=== PATIENT | female | born 1965 | race Caucasian/White ===

== ENCOUNTER 2023-10-20 08:17 | Emergency (ER) | payer SELFPAY ==
[2023-10-20] VITALS (13 sets, daily range): BP systolic 93–152; BP diastolic 52–68; PULSE 52–113; TEMP 36.6; O2SAT 94–100; BMI 25.6
--- NOTE | 2023-10-20 08:29 | XR_ITS ---
The [address] [address] Patient Name: SOFIA MONTALVO MRN: [id number] date: 1965 Sex: F Assigned Patient Location: ER Current Patient Location: ER Accession/Order Number: [id number] Exam Date: 10/20/2023 09:04 Report Date: 10/20/2023 09:19 At the request of: LEORA HOWARD Procedure: XR chest 1V EXAMINATION: XR chest 1V HISTORY: cp COMPARISON: No relevant comparison available. FINDINGS: LUNGS: No significant pulmonary parenchymal abnormalities. VASCULATURE: No increased pulmonary vasculature. PLEURA: No pneumothorax, effusion, or pleural thickening. CARDIAC: No cardiomegaly or cardiac silhouette abnormality. MEDIASTINUM: No visible mass or adenopathy. BONES: No fracture or visible bone lesion. OTHER: Negative. XR/XR chest 1V IMPRESSION: 1. No acute cardiopulmonary process. Electronically authenticated by: ALMA RIDLEY Date: 10/20/2023 09:19
--- NOTE | 2023-10-20 08:29 | ECG_ITS ---
The [facility] Test Date: 2023-10-20 Pat Name: Viktoria Phelan Department: Room: - Gender: Female [employer] Developer: : 1965 Requested By: [id number] Order Number: [id number] Reading MD: DANIEL RIVERA Measurements Intervals [place] Rate: 63 P: 73 WV: 222 QRS: 91 QRSD: 84 T: 68 QT: 396 QTc: 404 Interpretive Statements 1100 Sinus rhythm 2231 First degree AV block 7102 Moderate right axis deviation 9150 abnormal ECG No previous ECG available for comparison Electronically Signed On 10-20-2023 22:49:51 EDT by DANIEL RIVERA
--- NOTE | 2023-10-20 08:29 | CT_ITS ---
The [address] [address] Patient Name: SOFIA MONTALVO MRN: [id number] date: 1965 Sex: F Assigned Patient Location: ER Current Patient Location: ER Accession/Order Number: [id number] Exam Date: 10/20/2023 09:04 Report Date: 10/20/2023 09:36 At the request of: LEORA HOWARD Procedure: CT head/brain wo con EXAMINATION: CT head/brain wo con HISTORY: headache COMPARISON: No relevant comparison available. TECHNIQUE: Axial CT images were obtained without IV contrast. Dose reduction techniques were achieved by using automated exposure control and/or adjustment of mA and/or kV according to patient size and/or use of iterative reconstruction technique. FINDINGS: BRAIN: No edema, hemorrhage, mass, acute infarction, or inappropriate atrophy. CSF SPACES: No hydrocephalus, subarachnoid hemorrhage, or mass. Appropriate for age. SKULL: No fracture, mass, or other significant visible lesion. SINUSES: No significant mucosal thickening or fluid on the limited views. ORBITS: No appreciable abnormality on the limited views. OTHER: Negative CT/CT head/brain wo con IMPRESSION: 1. No abnormal or suspicious findings to account for patient's symptoms. Electronically authenticated by: ALMA RIDLEY Date: 10/20/2023 09:36
[2023-10-20 08:41] LABS: Basophils Absolute Auto 0.1 10^3/uL (0.0-0.1); Eosinophils Absolute Auto 0.1 10^3/uL (0.0-0.7); Eosinophils Percent Auto 2.1 % (0.9-7.0); Hematocrit 44.5 % (36.0-48.0); Hemoglobin 15.2 g/dL (12.0-16.0); Immature Granulocytes Abs Auto 0.01 10^3/uL (0.00-0.03); Immature Granulocytes Pct Auto 0.2 % (0.0-0.5); Lymphocytes Absolute Auto 1.6 10^3/uL (1.2-3.8); Lymphocytes Percent Auto 30.5 % (20.5-60.0); Mean Corpuscular HGB Conc 34.2 g/dL (29.9-35.2); Mean Corpuscular Hemoglobin 33.1 pg (26.7-34.0); Mean Corpuscular Volume 96.9 fL (81.0-99.0); Mean Platelet Volume 9.6 fL (9.5-13.5); Monocytes Absolute Auto 0.4 10^3/uL (0.3-0.8); Monocytes Percent Auto 6.7 % (1.7-12.0); Neutrophils Absolute Auto 3.1 10^3/uL (1.4-6.5); Neutrophils Percent Auto 59.5 % (43.0-75.0); Platelet Count 200 10^3/uL (150-450); Red Blood Count 4.59 10^6/uL (4.20-5.40); Red Cell Distribution Width 13.1 % (11.0-15.0); White Blood Count 5.3 10^3/uL (4.0-11.0)
[2023-10-20] MEDS: NITROGLYCERIN 0.4 MG BOTTLE SL (08:51)
[2023-10-20 08:59] LABS: Alanine Aminotransferase 26 U/L (14-59); Albumin Globulin Ratio 1.3; Albumin Level 3.8 g/dL (3.4-5.0); Alkaline Phosphatase 89 U/L (46-116); Anion Gap 13.2; Aspartate Amino Transferase 23 U/L (15-37); BUN Creatinine Ratio 10.3; Bilirubin Total 0.5 mg/dL (0.2-1.0); Calcium 9.3 mg/dL (8.5-10.1); Carbon Dioxide 28.3 mmol/L (21.0-32.0); Chloride 106 mmol/L (98-107); Estimated GFR (African America >60 (>=60); Estimated GFR (Non-African Ame >60 (>=60); Glucose 115 mg/dL (74-106); Potassium 3.5 mmol/L (3.5-5.1); Sodium 144 mmol/L (136-145); Total Protein 6.8 g/dL (6.4-8.2)
[2023-10-20 09:02] LABS: Troponin I High Sensitivity 5.3 pg/mL (4.0-51.3)
--- NOTE | 2023-10-20 09:07 | ED_ITS ---
HPI HPI - General Adult General Chief complaint: Chest Pain Stated complaint: CHEST PAIN Time Seen by Provider: 10/20/23 08:23 Source: patient Mode of arrival: walk-in Limitations: no limitations History of Present Illness HPI narrative: Patient presents to ED complaining of chest pain. She has a history of 1 stent placed a couple of years ago. She said this feels similar but not as bad. She takes aspirin and Plavix daily. She is supposed to be on a statin but just ran out of her statin medication. She also reports a headache. She complains of congestion and just not feeling well lately. She denies shortness of breath or diaphoresis. No nausea vomiting no abdominal pain. She does report that the pain seems to be worse with exertion. She said it has been going on and off for weeks but it was worse last night. She went to bed thinking maybe it would be better in the morning and it was not so she came in for further evaluation. Related Data Allergies Allergy/AdvReac Type Severity Reaction Status Date / Time codeine AdvReac Mild Nausea Verified 10/20/23 08:22 Opioid HPI Opioid Management Most Recent Opioid Data: Ur Phencyclidine Scrn Negative (NEGATIVE) 10/20/23 09:14 Review of Systems ROS Status of ROS 10 or more systems reviewed and unremark able except as noted in history and below Exam Narrative Exam Narrative: Time Seen: [] Vital Signs: [Per nurse's notes.] General: [Alert] Skin: [Warm, dry, no rash.] Head: [Normocephalic, atraumatic.] Neck: [Supple, trachea midline.] Eye: [Pupils are equal, round and reactive to light, extraocular movements are intact, normal conjunctiva.] Ears, nose, mouth and throat: oral mucosa moist. Cardiovascular: [Regular rate and rhythm, no murmur.] Respiratory: [Lungs are clear to auscultation, respirations are non-labored, breath sounds are equal.] Chest wall: [No tenderness, no deformity.] Gastrointestinal: [Soft, nontender, non distended, normal bowel sounds.] MSK: 5 out of 5 muscle strength x 4 extremities no calf pain or edema Lymphatics: [No lymphadenopathy.] Psychiatric: [Cooperative, Patient seems slightly anxious, mildly tearful Neurological: [Alert and oriented to person, place, time, and situation, no focal neurological deficit observed.] Constitutional Vital Signs, click to edit/add: Last Vital Signs Temp 97.8 F 10/20/23 08:22 Pulse 54 L 10/20/23 10:00 Resp 16 10/20/23 10:00 BP 93/52 10/20/23 10:00 Pulse Ox 98 10/20/23 09:00 O2 Del Method Room Air 10/20/23 08:22 Course Vital Signs Vital signs: Vital Signs Temperature 97.8 F 10/20/23 08:22 Pulse Rate 71 10/20/23 08:22 Respiratory Rate 18 10/20/23 08:22 Blood Pressure 152/68 H 10/20/23 08:22 Pulse Oximetry 100 10/20/23 08:22 Oxygen Delivery Method Room Air 10/20/23 08:22 Temperature 97.8 F 10/20/23 08:22 Pulse Rate 54 L 10/20/23 10:00 Respiratory Rate 16 10/20/23 10:00 Blood Pressure 93/52 10/20/23 10:00 Pulse Oximetry 98 10/20/23 09:00 Oxygen Delivery Method Room Air 10/20/23 08:22 Medical Decision Making MDM Narrative Medical decision making narrative: Patient's labs and imaging are nonacute. Troponin x 2 are negative. COVID- negative. Unsure exactly what her symptoms are from at this time, possibly viral or atypical chest pain. Follow-up with family doctor return to ED if worsening symptoms. Differential Diagnosis Differential Diagnosis: Chest pain, ACS, viral syndrome, COVID, atypical chest pain Medical Records Medical records reviewed: Yes I reviewed the patient's medical records Lab Data Lab results reviewed: Yes I reviewed the patient's lab results Labs: Lab Results 10/20/23 10/20/23 10/20/23 Range/Units 08:34 08:52 09:14 WBC 5.3 (4.0-11.0) 10^3/uL RBC 4.59 (4.20-5.40) 10^6/uL Hgb 15.2 (12.0-16.0) g/dL Hct 44.5 (36.0-48.0) % MCV 96.9 (81.0-99.0) fL MCH 33.1 (26.7-34.0) pg MCHC 34.2 (29.9-35.2) g/dL RDW 13.1 (11.0-15.0) % Plt Count 200 (150-450) 10^3/uL MPV 9.6 (9.5-13.5) fL Neut % (Auto) 59.5 (43.0-75.0) % Lymph % (Auto) 30.5 (20.5-60.0) % Elliott % (Auto) 6.7 (1.7-12.0) % Eos % (Auto) 2.1 (0.9-7.0) % Baso % (Auto) 1.0 (0.2-2.0) % Neut # (Auto) 3.1 (1.4-6.5) 10^3/uL Lymph # (Auto) 1.6 (1.2-3.8) 10^3/uL Elliott # (Auto) 0.4 (0.3-0.8) 10^3/uL Eos # (Auto) 0.1 (0.0-0.7) 10^3/uL Baso # (Auto) 0.1 (0.0-0.1) 10^3/uL Abs Immat Gran (auto) 0.01 (0.00-0.03) 10^3/uL Imm/Tot Granulo (auto) 0.2 (0.0-0.5) % Sodium 144 (136-145) mmol/L Potassium 3.5 (3.5-5.1) mmol/L Chloride 106 (98-107) mmol/L Carbon Dioxide 28.3 (21.0-32.0) mmol/L Anion Gap 13.2 BUN 8.0 (7.0-18.0) mg/dL Creatinine 0.78 (0.55-1.02) mg/dL Est GFR ( Amer) >60 (>=60) Est GFR (Non-Af Amer) >60 (>=60) BUN/Creatinine Ratio 10.3 Glucose 115 H (74-106) mg/dL Calcium 9.3 (8.5-10.1) mg/dL Total Bilirubin 0.5 (0.2-1.0) mg/dL AST 23 (15-37) U/L ALT 26 (14-59) U/L Alkaline Phosphatase 89 (46-116) U/L Troponin I High Sens 5.3 (4.0-51.3) pg/mL Total Protein 6.8 (6.4-8.2) g/dL Albumin 3.8 (3.4-5.0) g/dL Globulin 3.0 g/dL Albumin/Globulin Ratio 1.3 Urine Color Lt. yellow (YELLOW) Urine Clarity Clear (CLEAR) Urine pH 6.0 (5.0-9.0) Ur Specific [place] 1.010 (1.005-1.025) Urine Protein Negative (NEG/TRACE) mg/dL Urine Glucose (UA) Negative (NEGATIVE) mg/dL Urine Ketones Negative (NEGATIVE) mg/dL Urine Occult Blood Trace-i (NEGATIVE) Urine Nitrite Negative (NEGATIVE) Urine Bilirubin Negative (NEGATIVE) Urine Urobilinogen 0.2 (0.2-1.0) EU/dL Ur Leukocyte Esterase Negative (NEGATIVE) Urine RBC 0-2 (0-2) #/HPF Urine WBC None seen (NONE SEEN) #/HPF Ur Squamous Epith Cells Few A (NONE/RARE) #/LPF Urine Crystals None seen (None Seen) #/HPF Urine Bacteria None seen (NONE SEEN) #/HPF Urine Casts None seen (NONE SEEN) #/LPF Urine Mucus None seen (NONE SEEN) Ur Culture Indicated? No Urine Opiates Screen Negative (NEGATIVE) Ur Buprenorphine Scrn Negative (NEGATIVE) Ur Oxycodone Screen Negative (NEGATIVE) Urine Methadone Screen Negative (NEGATIVE) Ur Barbiturates Screen Negative (NEGATIVE) U Tricyclic Antidepress Negative (NEGATIVE) Ur Phencyclidine Scrn Negative (NEGATIVE) Ur Amphetamines Screen Negative (NEGATIVE) U Methamphetamines Scrn Negative (NEGATIVE) U Benzodiazepines Scrn Negative (NEGATIVE) Urine Cocaine Screen Negative (NEGATIVE) U Cannabinoids Screen Positive A (NEGATIVE) SARS-CoV-2 Ag (CV2AG) Negative (NEGATIVE) 10/20/23 Range/Units 10:08 WBC (4.0-11.0) 10^3/uL RBC (4.20-5.40) 10^6/uL Hgb (12.0-16.0) g/dL Hct (36.0-48.0) % MCV (81.0-99.0) fL MCH (26.7-34.0) pg MCHC (29.9-35.2) g/dL RDW (11.0-15.0) % Plt Count (150-450) 10^3/uL MPV (9.5-13.5) fL Neut % (Auto) (43.0-75.0) % Lymph % (Auto) (20.5-60.0) % Elliott % (Auto) (1.7-12.0) % Eos % (Auto) (0.9-7.0) % Baso % (Auto) (0.2-2.0) % Neut # (Auto) (1.4-6.5) 10^3/uL Lymph # (Auto) (1.2-3.8) 10^3/uL Elliott # (Auto) (0.3-0.8) 10^3/uL Eos # (Auto) (0.0-0.7) 10^3/uL Baso # (Auto) (0.0-0.1) 10^3/uL Abs Immat Gran (auto) (0.00-0.03) 10^3/uL Imm/Tot Granulo (auto) (0.0-0.5) % Sodium (136-145) mmol/L Potassium (3.5-5.1) mmol/L Chloride (98-107) mmol/L Carbon Dioxide (21.0-32.0) mmol/L Anion Gap BUN (7.0-18.0) mg/dL Creatinine (0.55-1.02) mg/dL Est GFR ( Amer) (>=60) Est GFR (Non-Af Amer) (>=60) BUN/Creatinine Ratio Glucose (74-106) mg/dL Calcium (8.5-10.1) mg/dL Total Bilirubin (0.2-1.0) mg/dL AST (15-37) U/L ALT (14-59) U/L Alkaline Phosphatase (46-116) U/L Troponin I High Sens 5.0 (4.0-51.3) pg/mL Total Protein (6.4-8.2) g/dL Albumin (3.4-5.0) g/dL Globulin g/dL Albumin/Globulin Ratio Urine Color (YELLOW) Urine Clarity (CLEAR) Urine pH (5.0-9.0) Ur Specific [place] (1.005-1.025) Urine Protein (NEG/TRACE) mg/dL Urine Glucose (UA) (NEGATIVE) mg/dL Urine Ketones (NEGATIVE) mg/dL Urine Occult Blood (NEGATIVE) Urine Nitrite (NEGATIVE) Urine Bilirubin (NEGATIVE) Urine Urobilinogen (0.2-1.0) EU/dL Ur Leukocyte Esterase (NEGATIVE) Urine RBC (0-2) #/HPF Urine WBC (NONE SEEN) #/HPF Ur Squamous Epith Cells (NONE/RARE) #/LPF Urine Crystals (None Seen) #/HPF Urine Bacteria (NONE SEEN) #/HPF Urine Casts (NONE SEEN) #/LPF Urine Mucus (NONE SEEN) Ur Culture Indicated? Urine Opiates Screen (NEGATIVE) Ur Buprenorphine Scrn (NEGATIVE) Ur Oxycodone Screen (NEGATIVE) Urine Methadone Screen (NEGATIVE) Ur Barbiturates Screen (NEGATIVE) U Tricyclic Antidepress (NEGATIVE) Ur Phencyclidine Scrn (NEGATIVE) Ur Amphetamines Screen (NEGATIVE) U Methamphetamines Scrn (NEGATIVE) U Benzodiazepines Scrn (NEGATIVE) Urine Cocaine Screen (NEGATIVE) U Cannabinoids Screen (NEGATIVE) SARS-CoV-2 Ag (CV2AG) (NEGATIVE) Imaging Data Chest x-ray: Radiologist's impression: ITS Impressions Chest X-Ray 10/20/23 08:29 IMPRESSION: 1. No acute cardiopulmonary process. Electronically authenticated by: ALMA RIDLEY Date: 10/20/2023 09:[address] 10/20/23 08:29 IMPRESSION: 1. No abnormal or suspicious findings to account for patient's symptoms. Electronically authenticated by: ALMA RIDLEY Date: 10/20/2023 09:36 ECG Data Attestation: I personally reviewed and interpreted this ECG as follows: Interpretation: EKG INTERPRETATION Time: []826 Rate: []63 Rhythm: _ []Sinus rhythm first-degree AV block ST segments: _ []No acute ST elevation or depression T waves: _ [] Ectopy: _ [] P wave/AL interval: _ [] QRS interval: _ [] QT interval: _ [] Comparison: _ [] Comparison EKG date: [] Performed by: [self] Discharge Plan Discharge Stand Alone Forms: Portal Instructions Chief Complaint: Chest Pain Clinical Impression: Chest pain, Acute viral syndrome Patient Disposition: Home, Self-Care Time of Disposition Decision: 10:49 Condition: Good Mode of Transportation: Private Vehicle Print Language: Estonian Instructions: Chest Pain (ED), Viral Syndrome (ED) Referrals: Physician,Non-Staff, MD [Primary Care Provider] - 1 week
[2023-10-20 09:20] LABS: Internal Control Within Normal Limits; SARS-CoV-2 Ag NEGATIVE (NEGATIVE)
[2023-10-20 09:25] LABS: Bilirubin Urine NEGATIVE (NEGATIVE); Blood Urine TRACE-I (NEGATIVE); Clarity Urine CLEAR (CLEAR); Color Urine LT. YELLOW (YELLOW); Glucose Urine UA NEGATIVE (NEGATIVE); Ketones Urine NEGATIVE (NEGATIVE); Leukocyte Esterase Urine NEGATIVE (NEGATIVE); Nitrite Urine NEGATIVE (NEGATIVE); Protein Urine NEGATIVE (NEG/TRACE); Urobilinogen Urine 0.2 EU/dL (0.2-1.0)
[2023-10-20 09:26] LABS: Urine Microscopic Indicated YES
[2023-10-20 09:43] LABS: Bacteria Urine NONE SEEN #/HPF (NONE SEEN); Cast Seen? NONE SEEN #/LPF (NONE SEEN); Crystals Seen? None Seen #/HPF (None Seen); Mucus Urine NONE SEEN (NONE SEEN); RBC Urine 0-2 #/HPF (0-2); Squamous Epithelial Cell Urine FEW #/LPF (NONE/RARE); Urine Culture Indicated NO; WBC Urine NONE SEEN #/HPF (NONE SEEN)
[2023-10-20 09:44] LABS: Amphetamine Screen Urine NEGATIVE (NEGATIVE); Barbiturates Screen Urine NEGATIVE (NEGATIVE); Benzodiazepines Screen Urine NEGATIVE (NEGATIVE); Buprenorphine Screen Urine NEGATIVE (NEGATIVE); Cannabinoid Screen Urine POSITIVE (NEGATIVE); Cocaine Screen Urine NEGATIVE (NEGATIVE); Methadone Screen Urine NEGATIVE (NEGATIVE); Methamphetamines Screen Urine NEGATIVE (NEGATIVE); Opiate Screen Urine NEGATIVE (NEGATIVE); Oxycodone Screen Urine NEGATIVE (NEGATIVE); Phencyclidine Screen Urine NEGATIVE (NEGATIVE); Tricyclic Antidepressant Urine NEGATIVE (NEGATIVE)
== END 2023-10-20 11:11 | disposition home or self-care (01) ==
PROVIDERS: Emergency Provider Emergency Medicine
DX: R07.9 Chest pain, unspecified (principal); B34.9 Viral infection, unspecified; Z95.5 Presence of coronary angioplasty implant and graft; Z79.82 Long term (current) use of aspirin; Z79.02 Long term (current) use of antithrombotics/antiplatelets
CPT/HCPCS: 36415; 70450; 71045; 80053; 80307; 81001; 84484; 85025; 87811; 93005; 99285

== ENCOUNTER 2024-11-26 15:11 | Emergency (ER) | payer BC, SELFPAY ==
--- OUTSIDE RECORDS SUMMARY | 2024-11-09 14:33 | XMS_ITS ---
Author Name Auto Generated Organization OHIP Care Team Providers Care Applications Support Lead Name Role Phone JULIAN HOWARD Attending Unavailable FURLONG, BRIAN G Referring Unavailable FURLONG, BRIAN G Attending Unavailable FURLONG, BRIAN G Referring Unavailable FURLONG, BRIAN G Primary Care Unavailable FURLONG, BRIAN G Attending Unavailable FURLONG, BRIAN G Referring Unavailable FURLONG, BRIAN G Primary Care Unavailable FURLONG, BRIAN G Attending Unavailable FURLONG, BRIAN G Referring Unavailable FURLONG, BRIAN G Primary Care Unavailable FURLONG, BRIAN G Attending Unavailable FURLONG, BRIAN G Referring Unavailable FURLONG, BRIAN G Primary Care Unavailable CARMELO MCGOVERN Referring Unavailable FURLONG, BRIAN Schultz Primary Care Unavailable CARMELO MCGOVERN Referring Unavailable FURLONG, BRIAN Marion Primary Care Unavailable HOUSE, AVTAR P Referring Unavailable HOUSE, AVTAR P Primary Care Unavailable FURLONG, BRIAN G Attending Unavailable FURLONG, BRIAN G Referring Unavailable FURLONG, BRIAN G Primary Care Unavailable FURLONG, BRIAN G Attending Unavailable FURLONG, BRIAN G Referring Unavailable FURLONG, BRIAN G Primary Care Unavailable FURLONG, BRIAN G Attending Unavailable FURLONG, BRIAN G Referring Unavailable FURLONG, BRIAN G Primary Care Unavailable FURLONG, BRIAN G Attending Unavailable FURLONG, BRIAN G Referring Unavailable FURLONG, BRIAN G Primary Care Unavailable Everardo Lafleur Attending Unavailable Everardo Lafleur Primary Care Unavailable Everardo Lafleur Admitting Unavailable PROBLEMS DATE TYPE CONDITION / CODE ATTENDING STATUS [facility] 11/09/2024 Unknown Essential (prima ry) hypertension / I10(ICD-10) Everardo Lafleur [facility] 10/06/2024 Unknown Encounter for ge neral adult medical examination without abnormal findings / Z00.00(ICD-10) BRAXTON BRIAN [facility] 10/06/2024 Unknown Radiculopathy, l umbar region / M54.16(ICD-10) BRAXTON BRIAN [facility] 10/06/2024 Unknown Encounter for immunization / Z23(ICD-10) MERVATLUIZ BRIAN [facility] 10/06/2024 Unknown Encounter for ri reening for malignant neoplasm of colon / Z12.11(ICD-10) BRAXTON BRIAN [facility] 10/06/2024 Unknown Annual Exam / FREETEXT(AOF) BRAXTON BRIAN Schultz [facility] 04/25/2016 Unknown Spondylosis with out myelopathy or radiculopathy, lumbosacral region / M47.817(ICD-10) BRAXTON BRIAN [facility] 09/01/2024 Unknown Pain in right kn ee / M25.561(ICD-10) BRAXTON BRIAN [facility] 09/01/2024 Unknown Other chronic pa in / G89.29(ICD-10) BRIAN LIMON [facility] 09/01/2024 Unknown Back Pain / FREETEXT(AOF) MERVATLUIZ [facility] 09/01/2024 Unknown Knee Pain / FREETEXT(AOF) [facility] 08/09/2024 Unknown Joint Swelling / FREETEXT(AOF) [facility]ATLUIZ [facility] 05/10/2024 Unknown Other abnormal a nd inconclusive findings on diagnostic imaging of breast / R92.8(ICD-10) WELCH [facility] 04/20/2024 Unknown Pain, unspecifie d / R52(ICD-10) [facility] 04/15/2024 Unknown Nicotine depende nce, cigarettes, uncomplicated / F17.210(ICD-10) [facility] 04/15/2024 Unknown Encounter for sc reening mammogram for malignant neoplasm of breast / Z12.31(ICD-10) [facility] 07/14/2023 Unknown 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(ICD-10) [facility] 05/07/2023 Unknown Cervicalgia / M54.2(ICD-10) [facility] 05/07/2023 Unknown Encephalitis and encephalomyelitis, unspecified / G04.90(ICD-10) [facility] 05/07/2023 Unknown Myelitis, unspec ified / G04.91(ICD-10) WELCH [facility] 02/10/2024 Unknown Pain in right up per arm / M79.621(ICD-10) [facility] 02/10/2024 Unknown Pain in left kne e / M25.562(ICD-10) [facility] 02/10/2024 Unknown Arm Pain / FREETEXT(AOF) MARC LIMON [facility] PROCEDURES No Procedure Records Found RESULTS COMPLETE BLOOD COUNT AUTO DIFF Collected: 11/09/2024 2:41 PM Status: F Source: [facility] TYPE CODE TESTS RESULT OUT OF RANGE REFERENCE UNITS LAB WBC White Blood Count 6.6 Normal 3.8-11.6 [CFU]/mL LAB UNWBC Uncorrected WBC 6.6 Normal 3.8-11.6 10*3/uL LAB RBC Red Blood Count 4.25 Normal 3.60-5.00 10*6/u L LAB HGB Hemoglobin 14.1 Normal 11.8-15.4 g/dL LAB HCT Hematocrit 40.5 Normal 34.0-46.4 % LAB MCV Mean Corpuscular Volume 95.3 Normal 80-100 fL LAB MCH Mean Corpuscular Hemoglobin 33.2 Normal 24.7-34.3 pg LAB MCHC Mean Corpuscular HGB Conc 34.8 Normal 32.0-35.0 g/dL LAB RDW Red Cell Distribution Width 13.8 Normal 11.9-15.3 % LAB PLT Platelet Count 219 Normal 150-450 10*3/uL LAB MPV Mean Platelet Volume 8.8 Normal 6.3-10.7 fL LAB NE% Neutrophils % (Auto) 74.5 . % LAB LY% Lymphocytes % (Auto) 19.6 . % LAB MO% Monocytes % (Auto) 4.9 . % LAB EO% Eosinophils % (Auto) 0.1 . % LAB BA% Basophils % (Auto) 0.9 . % LAB NRBC% NRBC% 0.0 Normal 0-0.5 /100{WBC} LAB NE# Neutrophils # (Auto) 4.9 Normal 1.8-7.7 10*3/uL LAB LY# Lymphocytes # (Auto) 1.3 Normal 1.00-4.8 10*3/uL LAB MO# Monocytes # (Auto) 0.3 Normal 0.0-0.8 10*3/uL LAB EO# Eosinophils # (Auto) 0.0 Normal 0.0-0.45 10*3/uL LAB BA# Basophils # (Auto) 0.1 Normal 0.0-0.2 10*3/uL Performed By: #### TSH3 wRFL X, [id number], [id number], LDLD, URIC, ESR, FE and TIBC, LIPID, MG, CMP, CBC, TYRA #### [facility] [address] [place] [address] [place] #### APOLONIA CHOICE #### [facility] , ERYTHROCYTE SEDIMENTATION RATE Collected: 11/09/2024 2:41 PM Status: F Source: [facility] TYPE CODE TESTS RESULT OUT OF RANGE REFERENCE UNITS LAB ESR Erythrocyte Sedimentation Rate 19 Normal 0-29 Result Comment: PERFORMED BY : [place] [address] PATHOLOGIST FURNITURE REPAIR TECHNICIAN BARRY ABBOTT M.D. Performed By: #### TSH3 wRFL X, [id number], [id number], LDLD, URIC, ESR, FE and TIBC, LIPID, MG, CMP, CBC, TYRA #### [place] [address] [place] #### APOLONIA CHOICE #### [facility] , COMPREHENSIVE METABOLIC PANEL Collected: 11/09/2024 2 :41 PM Status: F Source: [facility] [place] TYPE CODE TESTS RESULT OUT OF RANGE REFERENCE UNITS LAB GLU Glucose 121 High 70-100 mg/dL Result Comment: Random Gluco se Reference Range is dependent on time and content of last meal. Glucose of more than 200 mg/dL in a nonstressed, ambulatory subject supports the diagnosis of Diabetes Mellitus. ADA recommended reference range LAB BUN Blood Urea Nitrogen 11 Normal 7-25 mg/d L LAB CREATT Creatinine 0.87 Normal 0.60-1.20 mg/dL LAB GFReNR Estimated GFR >60.0 LAB NA Sodium 140 Normal 136-145 mmol/L LAB K Potassium 3.6 Normal 3.5-5.1 mmol/L LAB CL Chloride 106 Normal 98-107 mmol/L LAB CO2 Carbon Dioxide 26.3 Normal 21.0-31.0 mmol/L LAB GAP Anion Gap 11.3 Normal 6.0-15.0 LAB CA Calcium 9.3 Normal 8.6-10.3 mg/dL LAB TP Total Protein 7.1 Normal 6.4-8.9 g/dL LAB ALB Albumin Level 4.4 Normal 3.5-5.7 g/dL LAB GLOB Globulin 2.7 g/dL LAB AGRATIO Albumin/Globulin Ratio 1.6 LAB BILIT Bilirubin,Total 0.5 Normal 0.3-1.0 mg/dL LAB AST Aspartate Amino Transferase 15 Normal 13-39 U/L LAB ALT Alanine Aminotransferase 11 Normal 7-52 U/L LAB ALP Alkaline Phosphatase 72 Normal 34-104 U/L Performed By: #### TSH3 wRFL X, [id number], [id number], LDLD, URIC, ESR, FE and TIBC, LIPID, MG, CMP, CBC, TYRA #### [place] [address] [place] #### APOLONIA CHOICE #### [facility] , MAGNESIUM Collected: 2:41 PM Status: F Source: [facility] TYPE CODE TESTS RESULT OUT OF RANGE REFERENCE UNITS LAB MG Magnesium 1.9 Normal 1.9-2.7 mg/dL Performed By: #### TSH3 wRFL X, [id number], [id number], LDLD, URIC, ESR, FE and TIBC, LIPID, MG, CMP, CBC, TYRA #### [place] [address] [place] #### APOLONIA CHOICE #### [facility] , URIC ACID Collected: 2:41 PM Status: F Source: [facility] TYPE CODE TESTS RESULT OUT OF RANGE REFERENCE UNITS LAB URIC Uric Acid 4.4 Normal 2.3-6.6 mg/dL Performed By: #### TSH3 wRFL X, [id number], [id number], LDLD, URIC, ESR, FE and TIBC, LIPID, MG, CMP, CBC, TYRA #### [place] [address] [place] #### APOLONIA CHOICE #### [facility] , IRON AND TIBC PROFILE Collected: 11/09/2024 2:41 PM Status: F Source: [facility] TYPE CODE TESTS RESULT OUT OF RANGE REFERENCE UNITS LAB FE Iron 72 Normal 50-212 ug/dL LAB TIBCT Total Iron Binding Capacity 237 Low 255-450 ug/dL LAB FESAT% % Iron Saturation 30.4 Normal 20-50 % LAB TRANS Transferrin 169 Low 203-362 mg/dL Performed By: #### TSH3 wRFL X, [id number], [id number], LDLD, URIC, ESR, FE and TIBC, LIPID, MG, CMP, CBC, TYRA #### [facility] [address] [place] [address] [place] #### APOLONIA CHOICE #### [facility] , FERRITIN Collected: 2:41 PM Status: F Source: [facility] TYPE CODE TESTS RESULT OUT OF RANGE REFERENCE UNITS LAB TYRA Ferritin 47.0 Normal 11.0-306.8 ng/mL Performed By: #### TSH3 wRFL X, [id number], [id number], LDLD, URIC, ESR, FE and TIBC, LIPID, MG, CMP, CBC, TYRA #### [facility] [address] [place] [address] [place] #### APOLONIA CHOICE #### [facility] , LIPID PANEL Collected: 11/09/2024 2:41 PM Status: F Source: [facility] TYPE CODE TESTS RESULT OUT OF RANGE REFERENCE UNITS LAB CHOL Cholesterol 214 High 140-200 mg/dL Result Comment: Chol less th an 200 mg/dl low risk Chol 201-239 mg/dl borderline risk Chol 240 mg/dl and greater high risk LAB HDL HDL Cholesterol 67 Normal 23-92 mg/dL Result Comment: HDL CHOL ATP -III CLASSIFICATION Cardiovascular Risk HDL > or equal to 60 mg/dL LOW HDL < 40 mg/dL HIGH LAB TRIG W REF Triglyceride w/Reflex 96 Normal 0-149 mg/dL Result Comment: TRIG ATP III CLASSIFICATION TRIG less than 150 mg/dL Normal TRIG 150-199 mg/dL Borderline high TRIG 200-500 mg/dL High TRIG greater than 500 mg/dL Very high Standard traceable to the Center for Disease Conrtrol and Prevention (CDC) test method. LAB LDLC LDL Cholesterol,Calc ulated 128 High 0-100 mg/dL Result Comment: LDL ATP III CLASSIFICATION LDL less than 100 mg/dL Optimal LDL 100-129 mg/dL Near or above optimal LDL 130-159 mg/dL Borderline high LDL 160-189 mg/dL High LDL greater than 189 mg/dL Very high LAB VLDL VLDL CHOLESTEROL 19 mg/dL LAB CHLHDL Chol/HDL Ratio 3.2 <5.0 Performed By: #### TSH3 wRFL X, [id number], [id number], LDLD, URIC, ESR, FE and TIBC, LIPID, MG, CMP, CBC, TYRA #### [facility] [address] [place] [id number] [place] #### APOLONIA CHOICE #### [facility] , LDL CHOLESTEROL MEASURED Collected: 11/09/2024 2:41 P M Status: F Source: [facility] TYPE CODE TESTS RESULT OUT OF RANGE REFERENCE UNITS LAB LDLD LDL Cholesterol Measured 132 High 0-100 mg/dL Result Comment: LDL ATP III CLASSIFICATION LDL less than 100 mg/dL Optimal LDL 100-129 mg/dL Near or above optimal LDL 130-159 mg/dL Borderline high LDL 160-189 mg/dL High LDL greater than 189 mg/dL Very high Performed By: #### TSH3 wRFL X, [id number], [id number], LDLD, URIC, ESR, FE and TIBC, LIPID, MG, CMP, CBC, TYRA #### [place] [id number] [place] #### APOLONIA CHOICE #### [facility] , VIT. B12/FOLATE PROFILE Collected: 10/31 2:41 PM Status: F Source: [facility] TYPE CODE TESTS RESULT OUT OF RANGE REFERENCE UNITS LAB B12 Vitamin B12 171 Low 180-914 pg/mL LAB FOL Folate 11.7 >5.9 ng/mL Result Comment: Folate refer ence range: >5.9 ng/ml The WHO technical consultation on folate and vitamin b12 deficiencies has determined that folate concentrations less than 4 ng/ml are considered deficient. Performed By: #### TSH3 wRFL X, [id number], [id number], LDLD, URIC, ESR, FE and TIBC, LIPID, MG, CMP, CBC, TYRA #### [facility] [address] [place], [place] [id number] [place] #### APOLONIA CHOICE #### [facility] , THYROID STIM HORMONE W/RFLX Collected: 11/09/2024 2:41 PM Status: F Source: [facility] TYPE CODE TESTS RESULT OUT OF RANGE REFERENCE UNITS LAB TSH3 wRFLX Thyroid Stim Hormone w/Rflx 1.55 Normal 0.45-5.33 u[iU]/mL Performed By: #### TSH3 wRFL X, [id number], [id number], LDLD, URIC, ESR, FE and TIBC, LIPID, MG, CMP, CBC, TYRA #### [facility] [address] [place] [address] #### APOLONIA CHOICE #### [facility] , VITAMIN D 25 HYDROXY TOTAL Collected: 11/09/2024 2:41 PM Status: F Source: [facility] [place] TYPE CODE TESTS RESULT OUT OF RANGE REFERENCE UNITS LAB [id number] Vitamin D 25 Hydroxy Total 26.0 Low 30-100 ng/mL Result Comment: VITAMIN D ST ATUS 25(OH)VITAMIN D RANGE (ng/mL) Deficient <20 Insufficient 20 to <30 Sufficient 30 to 100 Reference: Dominik MF,Chelly NC, Eleanor LYONS, et al. Evaluation,treatment, and prevention of vitamin D deficiency; an Endocrine Society clinical practice guideline. JCEM. 2010; 96(7):1911-30. PERFORMED BY: [place] [address] PATHOLOGIST FURNITURE REPAIR TECHNICIAN BARRY ABBOTT M.D. Performed By: #### TSH3 wRFL X, [id number], [id number], LDLD, URIC, ESR, FE and TIBC, LIPID, MG, CMP, CBC, TYRA #### [facility] [address] [place] [address] #### APOLONIA CHOICE #### [facility] , APOLONIA WITH REFLEX Collected: 11/09/2024 2:41 PM Status : F Source: [facility] TYPE CODE TESTS RESULT OUT OF RANGE REFERENCE UNITS LAB APOLONIA CHOICE APOLONIA with Reflex Negative Negative Result Comment: Performed at : [facility] [address] [id number] Dinner Cook: Armando Whitten PhD, Phone: [phone] PERFORMED BY: [facility] [place] [address] [place] [address] PATHOLOGIST FURNITURE REPAIR TECHNICIAN BARRY ABBOTT M.D. Performed By: #### TSH3 wRFL X, [id number], [id number], LDLD, URIC, ESR, FE and TIBC, LIPID, MG, CMP, CBC, TYRA #### [facility] [address] [place] [address] [place] #### APOLONIA CHOICE #### [facility] , COMPREHENSIVE METABOLIC PANEL Collected: 2024 5:16 PM Status: COMPLETED Source: [facility] TYPE CODE TESTS RESULT OUT OF RANGE REFERENCE UNITS LAB NA SODIUM 142 134-146 mmol/L LAB K POTASSIUM 4.0 3.5-5.0 mmol/L LAB CL CHLORIDE 108 98-109 mmol/L LAB CO2 CARBON DIOXIDE 29 22-32 mmol/L LAB AGAP ANION GAP 5 5-15 mmol/L LAB BUN BLOOD UREA NITROGEN 15 5-23 mg/dL LAB CRET CREATININE 0.95 0.40-1.00 mg/dL Result Comment: METHOD TRACE ABLE TO IDMS STANDARD LAB GLU GLUCOSE 93 65-99 mg/dL LAB CA CALCIUM 9.2 8.5-10.5 mg/dL LAB TP TOTAL PROTEIN 6.2 6.0-8.0 g/dL LAB ALB ALBUMIN 4.0 3.2-5.3 g/dL LAB ALK ALKALINE PHOSPHATASE 63 39-130 U/L LAB AST AST 16 <=41 U/L LAB ALT ALT 13 <=31 U/L LAB TBIL BILIRUBIN,TOTAL 0.5 0.3-1.2 mg/dL LAB EGFR EGFR (CKD-EPI) NON-RACE DEPENDENT 69 >=60 ml/min/1 .73sq.m Result Comment: Reported eGF R is based on the CKD-EPI 2020 equation that does not use a race coefficient. Performed By: #### CMP #### [facility] ([facility]) [address] [place] [address] VIR LIPID PROFILE Collected: 10/06/2024 5:16 PM S tatus: COMPLETED Source: [facility] TYPE CODE TESTS RESULT OUT OF RANGE REFERENCE UNITS LAB CHOL CHOLESTEROL 224 High 150-200 mg/dL LAB TRIG TRIGLYCERIDE 90 27-150 mg/dL LAB HDL HDL CHOLESTEROL 58 >39 mg/dL Result Comment: HDL <40 mg/d L - High Risk HDL > or = 40mg/dL- Desirable HDL >60 mg/dL - Negative Risk LAB LDL LDL (CALC) 148 High <130 mg/dL Result Comment: LDL <100 mg/ dL - Desirable LDL >160 mg/dL - High Risk LAB CHDL CHOLESTEROL:HDL 3.9 1.0-5.0 NA LAB VLDL VERY LOW LIPOPROTEIN 18 0-30 mg/dL Performed By: #### LIPR #### [facility] ([facility]) [address] [place] [address] VIR MAMM DIAGNOSTIC BILATERAL W CAD Observed: 05/10/2024 1:48 PM Status: COMPLETED Source: [facility] MAMM DIAGNOSTIC BILATERAL W CAD KELLI PHELAN 1965 [id number] EXAM: MAMM DIAGNOSTIC BILATERAL W CAD, 05/10/2024 1:48 PM CLINICAL INDICATIONS: Abnormal mammogram, COMPARISON: 05/27/2021 and 04/15/2024 TECHNIQUE: Bilateral digital tomosynthesis MLO and CC views of the breasts were obtained, with creation of synthetic 2D views. Computer aided detection was utilized. FINDINGS: The breasts are heterogeneously dense, which may obscure small masses. With additional imaging, the previously described asymmetry in the right breast MLO view is no longer visualized and likely represented superimposed glandular tissue. The previously suggested architectural distortion in the left breast also resolved and likely represented superimposed glandular tissue. There are no suspicious masses, calcifications, or areas of architectural distortion. IMPRESSION: No mammographic evidence of malignancy. BI-RADS: BI-RADS 1 - Negative RECOMMENDATION: Routine screening mammogram in 1 year. RISK ASSESSMENT: TC Lifetime risk: 8.81%. The patient's reported personal and family medical history was used calculate their Tyrer-Cuzick lifetime risk of malignancy. Scores less than 20% are not considered high risk per ACR guidelines and patient should continue with the above recommendation. Patient was given the results before leaving the department. Finalized by Ozzie Britton MD on 05/10/2024 2:17 PM [address] LOW DOSE LUNG SCREENING Observed: 8:58 AM Status: COMPLETED Source: [facility] CT LOW DOSE LUNG SCREENING CLINICAL INFORMATION: Screening visit: Personal history of tobacco use/personal history of nicotine dependence. Lung cancer screening. The patient reports a history of 46 pack years of smoking. The patient is a Current smoker. COMPARISON: No relevant prior studies are available. TECHNIQUE: Low dose CT chest performed without contrast with coronal and sagittal and maximum intensity projection reconstructed images. Maximum intensity projection images generated to increase the sensitivity of pulmonary nodule detection. Automated exposure control was utilized. All CT scans at this facility use dose modulation, iterative reconstruction, and/or weight based dosing when appropriate to reduce radiation dose to as low as reasonably achievable. FINDINGS: Diagnostic quality: Suboptimal due to patient motion Lung nodules: No suspicious pulmonary nodules Lungs and pleural spaces: Centrilobular emphysematous change Heart and mediastinum:No mass or lymphadenopathy within the limitations of this study. Ascending thoracic aortic diameter: 3.3 cm Main pulmonary artery diameter: 2.5 cm Heart size: Normal Coronary calcification: Moderate Pericardial effusion: None Other findings: Mild discogenic degenerative changes in the thoracic spine IMPRESSION: No suspicious pulmonary nodules. Lung Rads Category: 1- Negative Recommendation: CT Low Dose Lung Screening 1 year Finalized by Dion Stubbs MD on 04/18/2024 11:44 AM 1 LDCT 1 Yr MAMM SCREENING BILATERAL W CAD Observed: 04/15/2024 8:39 AM Status: C Source: [facility] MAMM SCREENING BILATERAL W C AD *ADDENDUM*Comparison is made to prior study from outside institution dated 05/27/2021. No change to recommendation. Finalized by Anupam Raymond MD on 04/21/2024 9:35 AM 0A c ADDITIONAL I XR SPINE CERVICAL 3 VWS OR LESS Observed: 02/15/2024 3:06 PM Status: COMPLETED Source: [facility] XR SPINE CERVICAL 3 VWS OR L ESS EXAM: XR SPINE CERVICAL 3 VWS OR LESS INDICATION: Pain COMPARISON: 09/11/2017 TECHNIQUE: 3 views of the cervical spine FINDINGS/IMPRESSION: Loss of normal cervical lordosis. 2 mm of retrolisthesis of C4 on C5. Degenerative disc disease most pronounced at C4-C5. No acute fractures. Prevertebral soft tissues are normal. Base of the dens and lateral masses are normal. Edentulous maxilla and mandible. Finalized by Fidencio Newman on 02/15/2024 5:43 PM XR SHOULDER RT MIN 2 VWS Observed: 02/14 3:06 PM Status: COMPLETED Source: [facility] XR SHOULDER RT MIN 2 VWS EXAM: XR SHOULDER RT MIN 2 VWS CLINICAL INFORMATION: Pain in right upper arm. COMPARISON: None. FINDINGS: There is no evidence for an acute displaced fracture or dislocation of the glenohumeral joint. The acromioclavicular joint is normally aligned and unremarkable. IMPRESSION: Radiographically normal shoulder. Finalized by Blake Pate MD on 02/15/2024 8:09 PM XR KNEE LT 3 VWS Observed: 02/15/2024 3:05 PM Status: COMPLETED Source: [facility] XR KNEE LT 3 VWS EXAM: XR KNEE LT 3 VWS CLINICAL INFORMATION: Left knee pain, unspecified chronicity. COMPARISON: 05/21/2015 FINDINGS: There is no evidence for an acute displaced fracture or malalignment of the knee. There is a small knee joint effusion. There is mild DJD. IMPRESSION: 1. No evidence for an acute displaced fracture of malalignment of the knee. There is a small knee joint effusion. 2. Mild DJD. Finalized by Blake Pate MD on 02/15/2024 8:08 PM ALLERGIES DATE TYPE / CODE NAME / CODE REACTION SEVERITY SOURCE 04/25/2016 DRUG INGREDI~NON-CBORD/4 [id number](SNOMED CT) [facility] N[facility] E[facility]TER[facility] ADMIT/DISCHARGE ACCOUNT NUMBER ADMITTING ENCOUNTER CLASS LOCATION SOURCE 11/09/2024/11/10/19 [id number] [facility] 10/06/2024/10/07/19 [id number] Ambulatory Build[facility] 09/15/2024/09/16/19 [id number] Ambulatory Building:[facility] 09/01/2024/09/02/19 [id number] Ambulatory Buildin [facility] 08/09/2024/08/10/19 25 [id number] Ambulatory Buildin [facility] 05/10/2024/05/11/19 25 [id number] Ambulatory Building:[facility] _MAMM [facility] 04/20/2024 [id number] Ambulatory Building:[facility] 04/15/2024/04/15/19 [id number] Ambulatory Building:PF[facility] _CT [facility] 04/15/2024/04/15/19 25 [id number] Ambulatory Building:PFM _MAMM [facility] 02/15/2024/02/15/20 24 [id number] Ambulatory Building:PFM _XR [facility] 02/15/2024/02/15/20 24 [id number] Ambulatory Building:PFM _XR [facility] 02/15/2024/02/15/20 24 [id number] Ambulatory Building:PFM _XR [facility] 02/10/2024/02/10/20 24 [id number] Ambulatory Buildin [facility] PAYERS ENCOUNTER GUARANTOR PAYER SUBSCRIBER SOURCE 11/09/2024 Gwendolynarley [id number] [place] [id number]: () Primary Insurance:Point BC/BSPolicy Number: [id number] tive Date:2024-11-09 [id number] [place] [id number]: (HP) [facility] 11/09/2024 Secondary Insurance:Self PayPolicy Number: Effective Date:2024-11-09 [facility]2024 [facility]ARLEY [facility] [place] [id number]: (HP) Primary Insurance:BCBS OUT OF STATE PPO/TRUSTPolicy Number: [id number] tive Date:2024-03-02 KELLI TAMEZHIPDOB: [id number] [address]Blz: (WP) [facility] 09/15/2024 KELLI TAMEZHIPDOB: [address] [address]Jqt: (HP) Primary Insurance:BCBSPol icy Number: [id number] tive Date:2017-03-02 KELLI TAMEZHIPDOB: [id number] [address] [facility] 09/01/2024 KELLI TAMEZHIPDOB: [address] [address]Yzn: (HP) Primary Insurance:BCBS OUT OF STATE PPO/TRUSTPolicy Number: [id number] tive Date:2024-03-02 KELLI TAMEZHIPDOB: [id number] [address]Dou: (WP) [facility] 08/09/2024 KELLI TAMEZHIPDOB: [address] [address]Twy: (HP) Primary Insurance:BCBS OUT OF STATE PPO/TRUSTPolicy Number: [id number] tive Date:2024-03-02 KELLI TAMZEHIPDOB: [id number] [address]Cma: (WP) [facility] 05/10/2024 KELLI TAMEZHIPDOB: [address] [address]Mvf: (HP) Primary Insurance:BCBS OUT OF STATE PPO/TRUSTPolicy Number: [id number] tive Date:2024-03-02 KELLI TAMEZHIPDOB: [id number], [place] [address]Ubi: (WP) [facility] 04/20/2024 KELLI BLANKENSHIPDOB: [address], [place] [address]Zdl: (HP) Primary Insurance:BCBS OUT OF STATE PPO/TRUSTPolicy Number: [id number] tive Date:2024-03-02 KELLI BLANKHIPDOB: [id number], [place] [address]Ejh: (WP) [facility] 04/20/2024 Secondary Insurance:BCBS OUT OF STATE PPO/TRUSTPolicy Number: [id number] tive Date:2017-03-022024-03-01 KELLI BLANKHIPDOB: [id number] [address], [place] [address]Gpi: (WP) [facility] 04/15/2024 KELLI BLANKHIPDOB: [address] [place] [address]Krr: (HP) Primary Insurance:BCBS OUT OF STATE PPO/TRUSTPolicy Number: [id number] tive Date:2024-03-02 KELLI TAMEZHIPDOB: [id number], [place] [address]Wqx: (WP) [facility] 04/15/2024 KELLI BLANKENSHIPDOB: [address], [place] [address]Fnw: (HP) Primary Insurance:BCBS OUT OF STATE PPO/TRUSTPolicy Number: [id number] tive Date:2024-03-02 KELLI TAMEZHIPDOB: [id number], [place] [address]Ofq: (WP) [facility] 02/15/2024 KELLI TAMEZHIPDOB: [address], [place] [address]Avw: (HP) Primary Insurance:BCBS OUT OF STATE PPO/TRUSTPolicy Number: [id number] tive Date:2017-03-02 KELLI TAMEZHIPDOB: [id number], [place] [address]Kjn: (WP) [facility] 02/15/2024 KELLI TAMEZHIPDOB: [address], [place] [address]Wlx: (HP) Primary Insurance:BCBS OUT OF STATE PPO/TRUSTPolicy Number: [id number] tive Date:2017-03-02 KELLI TAMEZHIPDOB: [id number] [address], [place] [address]Tkm: (WP) [facility] 02/15/2024 KELLI TAMEZHIPDOB: [address], [place] [address]Myq: (HP) Primary Insurance:BCBS OUT OF STATE O/TRUSTPolicy Number: [id number] tive Date:2017-03-02 KELLI TAMEZHIPDOB: [id number], [place] [address]Xhy: (WP) [facility] 02/10/2024 KELLI TAMEZHIPDOB: [address], [place] [address]Nmj: (HP) Primary Insurance:BCBS OUT OF STATE PPO/TRUSTPolicy Number: [id number] tive Date:2017-03-02 KELLI TAMEZMELIZADOB: [id number] [facility] [place] [address]Trs: (HP) (WP) [facility]
[2024-11-26 15:17] VITALS: BP 130/71; PULSE 84; TEMP 37.2; O2SAT 96; BMI 22.9
--- NOTE | 2024-11-26 15:41 | ED.GENADUL1 ---
HPI HPI - General Adult General Chief complaint: Urogenital-Female Stated complaint: possible bladder infection Time Seen by Provider: 11/26/24 15:17 Source: patient Mode of arrival: walk-in Limitations: no limitations History of Present Illness HPI narrative: 59-year-old female presents for dysuria and frequency. She states she needs to urinate frequently but goes small amounts. No gross hematuria or flank pain. She believes she has a UTI. Symptoms started 1 or 2 days ago, she is not sure. Related Data Home Medications ?Medication ?Instructions ?Recorded ?Confirmed aspirin 81 mg tablet,delayed mg 11/26/24 release fluticasone propionate 50 intranasal 11/26/24 mcg/actuation nasal spray,suspension Previous Rx's ?Medication ?Instructions ?Recorded nitrofurantoin 100 mg PO BID 7 days #14 caps 11/26/24 monohydrate/macrocrystals 100 mg capsule (Macrobid) Allergies Allergy/AdvReac Type Severity Reaction Status Date / Time codeine AdvReac Mild Nausea Verified 11/26/24 15:20 Opioid HPI Opioid Management Most Recent Opioid Data: Ur Phencyclidine Scrn, (NEGATIVE) Negative 10/20/23, 09:14 Review of Systems ROS Narrative A ten point review of systems is negative except as noted above. PFSH PFSH Social History Little interest or pleasure in doing things: not at all Feeling down, depressed, or hopeless: not at all Exam Narrative Exam Narrative: Nurses note and vital signs reviewed and patient is not hypoxic. General:The patient appears well and in no apparent distress.Patient is resting comfortably on cart. Skin:Warm, dry, no pallor noted.There is no rash noted. Head:Normocephalic, atraumatic Eye: Normal conjunctiva, no drainage Ears, Nose, Mouth, and Throat: oral mucosa is moist. Nares patent. Cardiovascular:Regular Rate and Rhythm Respiratory:Patient is in no distress, no accessory muscle use, lungs are clear to auscultation, no wheezing, rales or rhonchi Back:non-tender, no CVA tenderness bilaterally to percussion. GI: Soft and nontender Musculoskeletal: No joint swelling Neurological: Awake and alert Psychiatric:Cooperative Constitutional Vital Signs, click to edit/add: Last Vital Signs Temp 98.9 F 11/26/24 15:17 Pulse 84 11/26/24 15:17 Resp 15 11/26/24 15:17 BP 130/71 11/26/24 15:17 Pulse Ox 96 11/26/24 15:17 O2 Del Method Room Air 11/26/24 15:17 Course Vital Signs Vital signs: Vital Signs Temperature 98.9 F 11/26/24 15:17 Pulse Rate 84 11/26/24 15:17 Respiratory Rate 15 11/26/24 15:17 Blood Pressure 130/71 11/26/24 15:17 Pulse Oximetry 96 11/26/24 15:17 Oxygen Delivery Method Room Air 11/26/24 15:17 Temperature 98.9 F 11/26/24 15:17 Pulse Rate 84 11/26/24 15:17 Respiratory Rate 15 11/26/24 15:17 Blood Pressure 130/71 11/26/24 15:17 Pulse Oximetry 96 11/26/24 15:17 Oxygen Delivery Method Room Air 11/26/24 15:17 Medical Decision Making MDM Narrative Medical decision making narrative: UTIs identified on her urinalysis and she was started on Macrobid here and prescribe same. Treatment diagnosis and follow-up were discussed with the patient. Differential Diagnosis Differential Diagnosis: UTI, cystitis, pyelonephritis Lab Data Lab results reviewed: Yes I reviewed the patient's lab results Labs: Lab Results 11/26/24 Range/Units 15:15 Urine Color Yellow (YELLOW) Urine Clarity Clear (CLEAR) Urine pH 5.5 (5.0-9.0) Ur Specific [place] >=1.030 A (1.005-1.025) Urine Protein Trace (NEG/TRACE) mg/dL Urine Glucose (UA) Negative (NEGATIVE) mg/dL Urine Ketones Trace A (NEGATIVE) mg/dL Urine Occult Blood Large A (NEGATIVE) Urine Nitrite Negative (NEGATIVE) Urine Bilirubin Small A (NEGATIVE) Urine Urobilinogen 1.0 (0.2-1.0) EU/dL Ur Leukocyte Esterase Small A (NEGATIVE) Urine RBC 5-10 A (0-2) #/HPF Urine WBC 5-10 A (NONE SEEN) #/HPF Ur Squamous Epith Cells Few A (NONE/RARE) #/LPF Urine Crystals None seen (None Seen) #/HPF Urine Bacteria Large A (NONE SEEN) #/HPF Urine Casts None seen (NONE SEEN) #/LPF Urine Mucus Trace A (NONE SEEN) Ur Culture Indicated[place] [place] Discharge Chief Complaint: Urogenital-Female Clinical Impression: Urinary tract infection Patient Disposition: Home, Self-Care Time of Disposition Decision: 16:12 Condition: Good Mode of Transportation: Private Vehicle Prescriptions / Home Meds: New nitrofurantoin monohyd/m-cryst [Macrobid] 100 mg capsule 100 mg PO BID 7 Days Qty: 14 0RF Rx Instructions: must administer with a meal/food No Action aspirin 81 mg tablet,delayed release (DR/EC) fluticasone propionate 50 mcg/actuation spray,suspension INTRANASAL Print Language: Luxembourgish Instructions: Urinary Tract Infection in Women (ED) Referrals: SAIDA HOWARD [Primary Care Provider] - 1 week
[2024-11-26 15:49] LABS: Glucose Urine UA NEGATIVE (NEGATIVE)
[2024-11-26 16:02] LABS: Cast Seen? NONE SEEN #/LPF (NONE SEEN); Crystals Seen? None Seen #/HPF (None Seen); Urine Culture Indicated YES-FRMC
[2024-11-26] MEDS: NITROFURANTOIN MONOHYD/MAC-CRST 100 MG CAPSULE PO (16:19)
== END 2024-11-26 16:22 | disposition home or self-care (01) ==
PROVIDERS: Emergency Provider Emergency Medicine; PCP Student in an Organized Health Care Education/Training Program
DX: N39.0 Urinary tract infection, site not specified (principal)
CPT/HCPCS: 81001; 87086; 99283